=== PATIENT | female | born 1955 | race Caucasian/White ===

== ENCOUNTER → 2018-10-14 | Outpatient (REF) | payer BC | LOC: M LAB REF 16:44 | PROVIDERS: ATTEND Nurse Practitioner Adult Health | DX: M25.541 Pain in joints of right hand (principal) ==

== ENCOUNTER → 2018-11-12 | Outpatient (CLI) | payer BC | LOC: M RAD 09:55 | PROVIDERS: ATTEND Nurse Practitioner Adult Health | DX: Z12.31 Encounter for screening mammogram for malignant neoplasm of breast (principal) ==

== ENCOUNTER → 2019-03-04 | Outpatient (CLI) | payer BC ==
[~2019-03-04] MED LIST: PROHANCE 279.3MG/ML 15ML VIAL (A9576) As Ordered ONE
--- NOTE | 2019-03-05 09:15 | REP ---
MR BRAIN WITHOUT AND WITH CONTRAST: HISTORY: Right lateral ventricle lesion. CONTRAST: ProHance 14 mL. COMPARISON: 08/25/2017. A 7 mm mass is present in the body of the right lateral ventricle. The mass is isointense on T1 and hypointense on T2-weighted images. There is intense homogenous enhancement with contrast. This is unchanged compared to the previous study. There is no intraparenchymal hemorrhage, infarct, or midline shift. There is no hydrocephalus or extracerebral collection. The sinuses are clear. IMPRESSION: There has been no change in size of the 7 mm mass in the right lateral ventricle. This may represent a subependymal or meningoma. Electronically Signed by Marco A Muir MD 03/05/2019 09:27 A
== END ==
LOC: M RAD 15:41
PROVIDERS: ATTEND Nurse Practitioner Adult Health
DX: D15.1 Benign neoplasm of heart (principal)
CPT/HCPCS: 70553; A9576

== ENCOUNTER → 2019-05-06 | Outpatient (CLI) | payer BC ==
--- NOTE | 2019-05-07 01:31 | REP ---
Clinical : Cervical pain. Technique: AP, lateral, flexion/extension, bilateral oblique and open mouth views of the cervical spine. Findings: 3 mm anterolisthesis at the C4-5 level appears chronic with anterior and posterior osteophytes. Advanced degenerative disc osteophyte complexes noted at C5-6 and C6-7 including osteophytosis, endplate sclerosis/heterogeneity and near complete disc space obliteration. Moderate degenerative changes noted throughout the remainder of the cervical spine. No acute fracture / compression injury. Open mouth view demonstrates normal C1-C2 articulation and odontoid process. Oblique views demonstrate hypertrophic facet changes with narrowing to the neural foramen. Impression: Moderate/advanced multilevel degenerative spondylosis. Electronically Signed by David Baez MD 05/07/2019 01:22 A
== END ==
LOC: M RAD 12:48
PROVIDERS: ATTEND Nurse Practitioner Family
DX: M25.78 Osteophyte, vertebrae (principal); M47.892 Other spondylosis, cervical region

== ENCOUNTER → 2019-05-29 | Outpatient (CLI) | payer BC ==
--- NOTE | 2019-06-01 09:55 | REP ---
MRI CERVICAL SPINE WITHOUT CONTRAST: HISTORY: Neck pain. No relief with physical therapy. Comparison cervical spine radiographs are from May 06, 2019. Comparison cervical spine MRI study is from May 01, 2010. TECHNIQUE: Sagittal and axial T1- and T2-weighted scans are acquired in the usual fashion with and without fat saturation. Sequences include spin echo, turbo spin echo, and STIR imaging sequences. MRI FINDINGS: There is straightening and reversal of the normal cervical lordosis. Cervical vertebral body heights are preserved. No bony destructive lesion is seen. There are degenerative spondylosis changes. Cervical cord is normal in coarse, caliber and signal intensity on T1- and T2-weighted scans. Craniocervical junction is unremarkable. Axial and sagittal images taken at C2-3 demonstrate minimal central disc bulging. At C3-4, there is degenerative disc narrowing and some decreased signal intensity. There is mild bilateral uncovertebral spurring. Bilateral facet hypertrophy is noted. No significant thecal sac compression is seen. At C4-C5, there is degenerative narrowing. Diffuse disc bulging is seen. There is left-sided uncovertebral spurring producing neural foraminal encroachment. Moderate facet hypertrophy is present bilaterally. At C5-6, there is posterior diffuse disc bulging and osteophytic ridging effacing the ventral margin of the thecal sac and flattening the ventral margin of the cord. Mild central canal stenosis is present. This is unchanged from the comparison study. There is bilateral uncovertebral spurring producing neural foraminal narrowing. This is unchanged as well. At C6-C7, there are similar findings of diffuse disc narrowing, posterior disc bulging and osteophytic ridging effacing the thecal sac and flattening the ventral margin of the cord. There is mild to moderate central canal stenosis. This appears more prominent than on the 2010 prior study. Bilateral uncovertebral spurring produces neural foraminal encroachment. Foraminal spurring is felt to be unchanged. At C7-T1, there is minimal central disc bulging. There is central disc bulging at T1-T2 as well. IMPRESSION: Degenerative spondylosis changes. Central canal stenosis at C5-6 and C6-7, most pronounced at C6-7. This is more pronounced at C6-7 than on the prior study. Electronically Signed by Lino Foote MD 06/01/2019 01:42 P
== END ==
LOC: M RAD 09:15
PROVIDERS: ATTEND Nurse Practitioner Adult Health
DX: M50.221 Other cervical disc displacement at C4-C5 level (principal); M50.222 Other cervical disc displacement at C5-C6 level; M50.223 Other cervical disc displacement at C6-C7 level; M50.23 Other cervical disc displacement, cervicothoracic region; M48.02 Spinal stenosis, cervical region; M47.812 Spondylosis without myelopathy or radiculopathy, cervical region

== ENCOUNTER 2019-07-26 08:30 | Outpatient (RCR) | payer BC | END 2019-07-29 | LOC: M PT 08:30 | PROVIDERS: ATTEND Nurse Practitioner Adult Health | DX: M54.2 Cervicalgia (principal) ==

== ENCOUNTER 2019-08-25 08:30 | Outpatient (RCR) | payer BC | END 2019-08-28 | LOC: M PT 08:30 | PROVIDERS: ATTEND Nurse Practitioner Adult Health | DX: Z47.89 Encounter for other orthopedic aftercare (principal) ==

== ENCOUNTER 2019-09-09 07:00 | Outpatient (RCR) | payer BC | END 2019-09-28 | LOC: M PT 07:00 | PROVIDERS: ATTEND Nurse Practitioner Adult Health | DX: Z51.89 Encounter for other specified aftercare (principal); M54.2 Cervicalgia ==

== ENCOUNTER → 2019-12-09 | Outpatient (REF) | payer BC ==
[2019-12-09 17:22] LABS: WBC, URINE 174 /hpf (0-3)
[2019-12-09 17:23] LABS: BACTERIA, URINE 2+; HYALINE CAST, URINE NONE SEEN /lpf (0-1); RBC, URINE 15-20 /hpf (0-3); SQUAMOUS EPITHELIAL CELL URINE MOD AMOUNT /hpf (SMALL AMT)
== END ==
LOC: M LAB REF 15:31
PROVIDERS: ATTEND Internal Medicine
DX: N39.0 Urinary tract infection, site not specified (principal)

== ENCOUNTER → 2020-01-05 | Outpatient (REF) | LOC: M LAB 07:05 | PROVIDERS: ATTEND Nurse Practitioner Adult Health | DX: Z02.89 Encounter for other administrative examinations (principal) ==

== ENCOUNTER → 2020-04-20 | Outpatient (CLI) | payer BC ==
--- NOTE | 2020-04-20 08:51 | REPMRS ---
Patient History The patient states she had a clinical breast exam in September 2019. Family history of ovarian cancer at age 57 in mother, breast cancer at age 50 in maternal grandmother, colorectal cancer in paternal aunt. Benign lumpectomy of the right breast. Digital Woman Screen Mammo: April 20, 2020 - Exam #: [id number] Bilateral CC and MLO view(s) were taken. Technologist: Estelle Stokes, Technologist Prior study comparison: November 12, 2018, bilateral digital mammo screening bilat, performed at [facility]. January 10, 2017, bilateral digital woman screen mammo, performed at [facility]. October 21, 2013, bilateral digital woman screen mammo, performed at [facility]. FINDINGS: There are scattered fibroglandular densities. The Volpara volumetric breast density category is:B. There has been no change in the appearance of the mammogram from the prior studies. There is a mild amount of scattered fibroglandular density which is fairly symmetric. There is no interval development of dominant mass, architectural distortion, or grouped microcalcification suggestive of malignancy. 3-D tomosynthesis shows no additional findings. Assessment: BI-RADS/ACR category 1 mammogram. Negative Mammogram. Recommendation Routine screening mammogram of both breasts in 1 year (for women over age 40). This patient's Lifetime Breast Cancer Risk is estimated at 8.7 %. This mammogram was interpreted with the aid of an FDA-approved computer-aided dectection system. Electronically Signed By: Solomon Foote MD 04/20/20 [id number]
== END ==
LOC: M WHC 08:11
PROVIDERS: ATTEND Nurse Practitioner Adult Health
DX: Z12.31 Encounter for screening mammogram for malignant neoplasm of breast (principal)

== ENCOUNTER → 2020-04-28 | Outpatient (CLI) | payer BC ==
--- NOTE | 2020-06-19 09:26 | REP ---
5-VIEWS RIGHT KNEE [facility] exhausted all efforts to obtain prior images for comparison. Prior imaging for comparison is unavailable. This examination has been brought to my attention for the first time for interpretation today at this time due to the catastrophic technology limitations/failures at the hold/originating facility since 04/22/2020 until today. FINDINGS: There is tricompartmental marginal osteophytosis particularly affecting the medial compartment. There is minimal medial compartmental narrowing. Mild medial and lateral compartment calcifications are noted. There is mild asymmetric patellofemoral joint space narrowing. There is no acute fracture, dislocation, or subluxation. IMPRESSION: Chronic changes as described above. MTDD
== END ==
LOC: M RAD 13:23
PROVIDERS: ATTEND Nurse Practitioner Adult Health
DX: M17.11 Unilateral primary osteoarthritis, right knee (principal); M25.761 Osteophyte, right knee

== ENCOUNTER → 2020-08-16 | Outpatient (CLI) | payer BC ==
[~2020-08-16] MED LIST changes: -PROHANCE 279.3MG/ML 15ML VIAL (A9576) As Ordered ONE; +PROHANCE 279.3MG/ML 15ML VIAL As Ordered ONE
--- NOTE | 2020-08-16 18:21 | REPVR ---
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 Contrast material: PROHANCE; Contrast volume: 19 ml; Contrast route: INTRAVENOUS (IV); COMPARISON: MRI-Brain W/O FOLL BY WITH 03/04/2019 4:30 PM FINDINGS: Brain: No restricted diffusion within the brain to suggest an acute infarct. Minimal periventricular FLAIR hyperintense gliosis visualized, suggestive of chronic small vessel ischemic disease. Nonspecific increased FLAIR signal intensity is seen within the medial aspects of the inferior frontal lobes, which is symmetric bilaterally. There is no pathological enhancement or restricted diffusion in these regions. There is no progression compared to the prior study. Gliosis is suggested. No abnormally enhancing intracerebral mass is visualized. No midline shift. Cerebral ventricles: Within the right lateral ventricle, there is a 7-8 mm enhancing intraventricular lesion, stable in size compared to the prior study. Differential considerations include meningioma and subependymoma. An intraventricular metastasis is also within the differential, although the stability of this lesion suggests a nonaggressive lesion. No ventriculomegaly. Bones/joints: T1 hypointensity is identified involving the C3 vertebral body. This is incompletely evaluated on this study. Infiltrating marrow pathology cannot be excluded. A subcentimeter FLAIR hyperintense lesion is identified within the right parietooccipital skull, which is nonspecific. This is stable compared to the prior study. Paranasal sinuses: Minimal mucosal thickening of ethmoid air cells. Mastoid air cells: No mastoid effusion. Orbits: Artifact limits evaluation of the optic globes. Soft tissues: Unremarkable, as visualized. IMPRESSION: 1. Within the right lateral ventricle, there is a 7-8 mm enhancing intraventricular lesion, stable in size compared to the prior study. Differential considerations include meningioma and subependymoma. An intraventricular metastasis is also within the differential, although the stability of this lesion suggests a nonaggressive lesion. Continued follow-up with MRI recommended. 2. T1 hypointensity is identified involving the C3 vertebral body. Infiltrating marrow pathology cannot be excluded. A follow-up MRI cervical spine with/without contrast is recommended. 3. Additional findings described above. Electronically signed by: Destin Bedolla On 08/16/2020 18:21:11 PM
== END ==
LOC: M RAD 16:10
PROVIDERS: ATTEND Nurse Practitioner Adult Health
DX: D43.2 Neoplasm of uncertain behavior of brain, unspecified (principal)
CPT/HCPCS: 70553; A9576

== ENCOUNTER → 2020-09-15 | Outpatient (CLI) | payer BC ==
--- NOTE | 2020-09-15 13:23 | REPVR ---
PROCEDURE INFORMATION: Exam: MR Cervical Spine Without and With Contrast Exam date and time: 09/15/2020 11:08 AM Age: 65 years old Clinical indication: Abnormal findings; Abnormal xray or scan of neck and cervical spine; Patient HX: See mri brain report; Additional info: Abn findings imag of skull/neck TECHNIQUE: Imaging protocol: Multiplanar magnetic resonance images of the cervical spine without and with intravenous contrast. Contrast material: PROHANCE; Contrast volume: 13 ml; Contrast route: INTRAVENOUS (IV); COMPARISON: MRI-Spine,Cervical without con 05/29/2019 9:59 AM FINDINGS: Vertebrae: There is 3 mm of grade 1 anterolisthesis of C4 with respect to C5. There is 3 mm of grade 1 retrolisthesis of C6 with respect to C7. Normal vertebral body alignment is otherwise preserved. Vertebral body heights are within normal limits. There is severe intervertebral disc space loss at C5/6 and C6/7. Aside from associated endplate changes, marrow signal is within normal limits. Changes described at C3 on preceding MRI brain examination are artifactual. Spinal cord: Normal signal. No cord compression. C2-C3: There is a shallow disc osteophyte complex. There is mild facet hypertrophy. There is mild left neural foraminal narrowing. C3-C4: There is a shallow disc osteophyte complex. There is moderate facet hypertrophy. There is moderate to severe right neural foraminal narrowing. C4-C5: There is a diffuse disc osteophyte complex/uncovering related to listhesis. There is severe facet hypertrophy. There is severe left neural foraminal narrowing. C5-C6: There is a diffuse disc osteophyte complex. There is moderate facet hypertrophy. There is severe bilateral neural foraminal narrowing. There is moderate canal stenosis. C6-C7: There is a diffuse disc osteophyte complex/uncovering related to listhesis. There is moderate facet hypertrophy. There is severe bilateral neural foraminal narrowing. There is moderate canal stenosis. C7-T1: No significant disc disease. No significant spinal stenosis. Vertebral arteries: Expected flow voids in the vertebral arteries. Soft tissues: Unremarkable. IMPRESSION: 1. Degenerative disc disease and spondylosis. Changes contribute to multilevel severe neural foraminal narrowing. 2. Reported finding on MRI brain examination within the C3 body is artifactual. Electronically signed by: Aggie Greenberg On 09/15/2020 13:23:32 PM
== END ==
LOC: M RAD 09:51
PROVIDERS: ATTEND Nurse Practitioner Adult Health
DX: R93.0 Abnormal findings on diagnostic imaging of skull and head, not elsewhere classified (principal)
CPT/HCPCS: 72156; A9576

== ENCOUNTER → 2021-06-11 | Outpatient (REF) | LOC: M EMP 08:10 | PROVIDERS: ATTEND Family Medicine | DX: Z11.52 Encounter for screening for COVID-19 (principal) ==

== ENCOUNTER → 2021-06-12 | Outpatient (REF) | LOC: M EMP 08:15 | PROVIDERS: ATTEND Family Medicine | DX: Z11.52 Encounter for screening for COVID-19 (principal) ==

== ENCOUNTER → 2021-06-19 | Outpatient (REF) | LOC: M EMP 13:28 | PROVIDERS: ATTEND Family Medicine | DX: Z11.52 Encounter for screening for COVID-19 (principal) ==

== ENCOUNTER → 2021-10-26 | Outpatient (REF) | payer BC | LOC: M LAB REF 16:23 | PROVIDERS: ATTEND Nurse Practitioner Adult Health | DX: R20.2 Paresthesia of skin (principal) ==

== ENCOUNTER → 2021-12-28 | Outpatient (CLI) | payer BC | LOC: M WHC 10:31 | PROVIDERS: ATTEND Nurse Practitioner Adult Health | DX: Z12.31 Encounter for screening mammogram for malignant neoplasm of breast (principal) ==

== ENCOUNTER → 2022-01-26 | Outpatient (REF) | payer BC ==
[2022-01-26 13:34] LABS: BLOOD UREA NITROGEN 13 MG/DL (7-18); CALCIUM LEVEL 9.2 MG/DL (8.8-10.2); CARBON DIOXIDE LEVEL 33 MEQ/L (21-32); CHLORIDE LEVEL 106 MEQ/L (98-107); CREATININE FOR GFR 0.75 MG/DL (0.55-1.30); GLOMERULAR FILTRATION RATE > 60.0 (>45); GLUCOSE, FASTING 88 MG/DL (70-100); POTASSIUM SERUM 4.2 MEQ/L (3.5-5.1); SODIUM LEVEL 141 MEQ/L (136-145)
== END ==
LOC: M LAB REF 12:55
PROVIDERS: ATTEND Nurse Practitioner Adult Health
DX: K58.1 Irritable bowel syndrome with constipation (principal)

== ENCOUNTER → 2022-01-29 | Outpatient (CLI) | payer BC | LOC: M RAD 07:44 | PROVIDERS: ATTEND Nurse Practitioner Adult Health | DX: D43.2 Neoplasm of uncertain behavior of brain, unspecified (principal) | CPT/HCPCS: 70553; A9576 ==

== ENCOUNTER → 2022-02-26 | Outpatient (CLI) | payer BC | LOC: M LAB 14:35 | PROVIDERS: ATTEND Nurse Practitioner Adult Health | DX: M25.551 Pain in right hip (principal) ==

== ENCOUNTER → 2022-06-20 | Outpatient (REF) | LOC: M EMP 11:00 | PROVIDERS: ATTEND Family Medicine | DX: Z20.822 Contact with and (suspected) exposure to COVID-19 (principal) ==

== ENCOUNTER → 2022-10-22 | Outpatient (REF) ==
[2022-10-22 09:08] LABS: RSV AMPLIFICATION NEGATIVE (NEGATIVE)
== END ==
LOC: M EMP 08:06
PROVIDERS: ATTEND Family Medicine
DX: Z11.59 Encounter for screening for other viral diseases (principal)

== ENCOUNTER → 2022-10-25 | Outpatient (REF) ==
[2022-10-25 14:44] LABS: RSV AMPLIFICATION NEGATIVE (NEGATIVE)
== END ==
LOC: M EMP 13:38
PROVIDERS: ATTEND Family Medicine
DX: Z11.52 Encounter for screening for COVID-19 (principal)

== ENCOUNTER → 2023-01-19 | Outpatient (CLI) | payer BC ==
[2023-01-19 10:55] LABS: ALBUMIN 3.9 G/DL (3.2-5.2); ALKALINE PHOSPHATASE 57 U/L (46-116); ALT/SGPT 23 U/L (7.0-40); AST/SGOT 21 U/L (<34); BILIRUBIN,TOTAL 0.3 MG/DL (0.3-1.2); BLOOD UREA NITROGEN 13 MG/DL (9-23); CALCIUM LEVEL 9.4 MG/DL (8.3-10.6); CARBON DIOXIDE LEVEL 32 MMOL/L (20-31); CHLORIDE LEVEL 105 MMOL/L (98-107); CHOLESTEROL LEVEL 228 MG/DL (<200); CHOLESTEROL RISK RATIO 3.51 (<5); CREATININE FOR GFR 0.76 MG/DL (0.55-1.30); GLOMERULAR FILTRATION RATE > 60.0 (>45); GLUCOSE, FASTING 67 MG/DL (74-106); HDL CHOLESTEROL 64.9 MG/DL (>40); LDL CHOLESTEROL 124.5 MG/DL (<100); NON-HDL-C 163.1 MG/DL; POTASSIUM SERUM 4.4 MMOL/L (3.5-5.1); SODIUM LEVEL 140 MMOL/L (136-145); TOTAL PROTEIN 6.8 G/DL (5.7-8.2); TRIGLYCERIDES LEVEL 193 MG/DL (<150)
== END ==
LOC: M LAB 09:58
PROVIDERS: ATTEND Nurse Practitioner Adult Health
DX: Z00.00 Encounter for general adult medical examination without abnormal findings (principal); E78.2 Mixed hyperlipidemia

== ENCOUNTER → 2023-01-22 | Outpatient (CLI) | payer BC | LOC: M WHC 10:10 | PROVIDERS: ATTEND Nurse Practitioner Adult Health | DX: Z12.31 Encounter for screening mammogram for malignant neoplasm of breast (principal) ==

== ENCOUNTER → 2023-03-13 | Outpatient (REF) | LOC: M EMP 15:26 | PROVIDERS: ATTEND Family Medicine | DX: Z11.52 Encounter for screening for COVID-19 (principal) ==

== ENCOUNTER 2023-04-07 08:47 | Day surgery (SDC) | payer BC ==
[~2023-04-07] VITALS: Ht 167.6 cm; Wt 63.5 kg
[~2023-04-07 08:47] MED LIST changes: +APPL300T4 PO; +COCO1000 PO; +FAMO40TA3 PO; +GABA-1171 PO; +GABA-282 PO; +LIDOCAINE 2% 100MG/5ML SDV (FOR ANES.) As Ordered ONE; +NS 1,000 ML IV ONE; -PROHANCE 279.3MG/ML 15ML VIAL As Ordered ONE; +VALT1TAB PO; +VENL150C43 PO; +VITMTA PO; +fentaNYL 100 MCG/2 ML INJECTION As Ordered ONE; +propofoL 500 MG/50 ML VIAL As Ordered ONE
[2023-04-07] MEDS ORDERED: ONDANSETRON 4MG 2ML VIAL As Ordered ONE (09:38)
[2023-04-07 10:11] VITALS: TEMP 97.4
[2023-04-07 10:42] VITALS: BP 120/56; O2SAT 99
== END 2023-04-07 10:53 | disposition home or self-care (01) ==
LOC: M OPP 08:47
PROVIDERS: ATTEND Internal Medicine Gastroenterology
DX: Z12.11 Encounter for screening for malignant neoplasm of colon (principal); K64.4 Residual hemorrhoidal skin tags; K64.8 Other hemorrhoids; K57.30 Diverticulosis of large intestine without perforation or abscess without bleeding; K29.70 Gastritis, unspecified, without bleeding; K21.00 Gastro-esophageal reflux disease with esophagitis, without bleeding; K57.10 Diverticulosis of small intestine without perforation or abscess without bleeding; K31.89 Other diseases of stomach and duodenum; Z79.891 Long term (current) use of opiate analgesic; Z79.899 Other long term (current) drug therapy; Z88.2 Allergy status to sulfonamides; Z91.048 Other nonmedicinal substance allergy status
CPT/HCPCS: 43239; 45378; 88305; J2405; J3010

== ENCOUNTER → 2024-01-08 | Outpatient (REF) | payer BC ==
[~2024-01-08] MED LIST changes: -LIDOCAINE 2% 100MG/5ML SDV (FOR ANES.) As Ordered ONE; -NS 1,000 ML IV ONE; -fentaNYL 100 MCG/2 ML INJECTION As Ordered ONE; -propofoL 500 MG/50 ML VIAL As Ordered ONE
== END ==
LOC: M SFHCDERM 17:56
PROVIDERS: ATTEND Physician Assistant
DX: D48.5 Neoplasm of uncertain behavior of skin (principal)

== ENCOUNTER → 2024-01-23 | Outpatient (REF) | payer BC ==
[2024-01-23 12:38] LABS: C REACTIVE PROTEIN QUANTITATIV < 0.40 MG/DL (<1.0)
[2024-01-23 12:41] LABS: RHEUMATOID FACTOR QUANT < 3.5 IU/ML (<14)
[2024-01-24 20:09] LABS: ANA (HEP2) Negative (.); CYCLIC CITRULLINATED PEPTIDE 5 units (0-19)
== END ==
LOC: M LAB REF 11:48
PROVIDERS: ATTEND Nurse Practitioner Family
DX: M25.50 Pain in unspecified joint (principal)

== ENCOUNTER → 2024-01-27 | Outpatient (CLI) | payer BC | LOC: M WHC 14:49 | PROVIDERS: ATTEND Nurse Practitioner Family | DX: Z12.31 Encounter for screening mammogram for malignant neoplasm of breast (principal); Z13.820 Encounter for screening for osteoporosis ==

== ENCOUNTER → 2024-03-04 | Outpatient (CLI) | payer BC ==
[~2024-03-04] MED LIST changes: +OMEP40CA4 PO; +THERTAB52 PO
== END ==
LOC: M RAD 10:33
PROVIDERS: ATTEND Podiatrist
DX: Z01.818 Encounter for other preprocedural examination (principal); M20.12 Hallux valgus (acquired), left foot; M21.622 Bunionette of left foot; M79.672 Pain in left foot; R00.1 Bradycardia, unspecified; I45.19 Other right bundle-branch block

== ENCOUNTER → 2024-03-12 | Outpatient (CLI) | payer BC ==
[2024-03-12 07:19] LABS: BASO # 0.1 10^3/uL (0.0-0.2); EOS # 0.3 10^3/uL (0.0-0.5); EOS % 7.1 % (0.0-3.0); HEMATOCRIT 36.4 % (36.0-47.0); HEMOGLOBIN 11.9 g/dl (12.0-15.5); LYMPH # 1.9 10^3/uL (1.5-5.0); LYMPH % 38.5 % (24.0-44.0); MEAN CORPUSCULAR HEMOGLOBIN 30.1 pg (27.0-33.0); MEAN CORPUSCULAR HGB CONC 32.7 g/dl (32.0-36.5); MEAN CORPUSCULAR VOLUME 91.9 fl (80.0-96.0); MONO # 0.4 10^3/uL (0.0-0.8); MONO % 8.3 % (2.0-8.0); NEUTROPHILS # 2.2 10^3/uL (1.5-8.5); NEUTROPHILS % 45.1 % (36.0-66.0); PLATELET COUNT, AUTOMATED 229 10^3/uL (150-450); RED BLOOD COUNT 3.96 10^6/uL (4.00-5.40); WHITE BLOOD COUNT 4.8 10^3/uL (4.0-10.0)
[2024-03-12 07:42] LABS: BLOOD UREA NITROGEN 16 MG/DL (9-23); CALCIUM LEVEL 9.3 MG/DL (8.3-10.6); CARBON DIOXIDE LEVEL 27 MMOL/L (20-31); CHLORIDE LEVEL 107 MMOL/L (98-107); CREATININE FOR GFR 0.78 MG/DL (0.55-1.30); GLOMERULAR FILTRATION RATE > 60.0 (>45); GLUCOSE, FASTING 117 MG/DL (74-106); POTASSIUM SERUM 4.1 MMOL/L (3.5-5.1); SODIUM LEVEL 141 MMOL/L (136-145)
== END ==
LOC: M LAB 06:12
PROVIDERS: ATTEND Podiatrist
DX: M20.12 Hallux valgus (acquired), left foot (principal); M21.622 Bunionette of left foot; M79.672 Pain in left foot

== ENCOUNTER 2024-03-19 06:03 | Day surgery (SDC) | payer BC ==
[~2024-03-19] VITALS: Ht 168.9 cm; Wt 62.6 kg
[2024-03-19] MEDS: LR 1,000 ML IV SCH (06:53)
[2024-03-19] MEDS: ROPIvacaine 0.5% 30ML VIAL As Ordered ONE (07:30)
[2024-03-19] MEDS: ceFAZolin SOD 2 GM in IV 1 EA IV ONE (07:30)
[2024-03-19] MEDS: LIDOCAINE 2% MDV 20ML VIAL As Ordered ONE (07:30)
[2024-03-19] MEDS ORDERED: dexmedeTOMIDine (4MCG/ML)200MCG/50ML BTL (PRECEDEX) As Ordered ONE (07:44)
[2024-03-19] MEDS ORDERED: ONDANSETRON 4MG 2ML VIAL As Ordered ONE (07:44)
[2024-03-19] MEDS ORDERED: MIDAZOLAM INJ 2MG/2ML VIAL As Ordered ONE (07:44)
[2024-03-19] MEDS ORDERED: LIDOCAINE 2% 100MG/5ML SDV (FOR ANES.) As Ordered ONE (07:44)
[2024-03-19] MEDS ORDERED: diphenhydrAMINE 50MG/ML VIAL As Ordered ONE (07:44)
[2024-03-19] MEDS ORDERED: fentaNYL 100 MCG/2 ML INJECTION As Ordered ONE (07:44)
[2024-03-19] MEDS ORDERED: ACETAMINOPHEN 1000MG 100ML IV BAG As Ordered ONE (07:44)
[2024-03-19] MEDS ORDERED: propofoL 200 MG/20 ML VIAL As Ordered ONE (07:44)
[2024-03-19] MEDS ORDERED: METOCLOPRAMIDE INJ 10MG/2ML VIAL As Ordered ONE (07:44)
[2024-03-19] MEDS ORDERED: ePHEDrine SULFATE 25 MG/5 ML(5MG/ML) SYRINGE As Ordered ONE (08:06)
[2024-03-19] MEDS: GENTAMICIN SULF 80MG/2ML VIAL As Ordered ONE (08:20)
[2024-03-19] MEDS ORDERED: PHENYLephrine 500MCG 5ML (100MCG/ML) SYRINGE As Ordered ONE (08:28)
[2024-03-19 10:16] VITALS: BP 111/56; TEMP 97; O2SAT 98
== END 2024-03-19 11:45 | disposition home or self-care (01) ==
LOC: M SDC 06:03
PROVIDERS: ATTEND Podiatrist
DX: M20.12 Hallux valgus (acquired), left foot (principal); M21.622 Bunionette of left foot; M21.6X2 Other acquired deformities of left foot; I10 Essential (primary) hypertension; K21.9 Gastro-esophageal reflux disease without esophagitis; M19.90 Unspecified osteoarthritis, unspecified site; M54.9 Dorsalgia, unspecified; Z79.899 Other long term (current) drug therapy; Z88.2 Allergy status to sulfonamides; Z91.048 Other nonmedicinal substance allergy status; Z87.891 Personal history of nicotine dependence
CPT/HCPCS: 28297; 73630; 76000; C1713; J0131; J0690; J1100; J1200; J1580; J2250; J2371; J2405; J2765; J2795; J3010

== ENCOUNTER → 2025-05-25 | Outpatient (CLI) | payer MEDICARE ==
[~2025-05-25] MED LIST changes: +GABA-1172 PO; -GABA-282 PO
== END ==
LOC: M WHC 15:18
PROVIDERS: ATTEND Nurse Practitioner Family
DX: Z12.31 Encounter for screening mammogram for malignant neoplasm of breast (principal); R92.323 Mammographic fibroglandular density, bilateral breasts